=== PATIENT | male | born 1950 | race Caucasian/White ===

== ENCOUNTER 2020-07-28 15:51 | Emergency (ER) | payer MEDICARE ==
[~2020-07-28] VITALS: Ht 170.2 cm; Wt 63.6 kg
[2020-07-28] MEDS ORDERED: MORPHINE ER 30 MG TABLET.ER PO STA (17:29)
[2020-07-28] MEDS ORDERED: OXYC1TAB15 PO (17:40)
--- NOTE | 2020-07-28 17:41 | PHYS DOC ---
Past Medical History Past Medical History: GI Bleed, Hypertension, Other Additional Past Medical Histor: CHRONIC BACK/R SHOULDER PAIN Past Surgical History: Other Additional Past Surgical Histo: R SHOULDER X5,RECONSTRUCTION FACIAL SURG Smoking Status: Former Smoker Alcohol Use: None General Adult EDM: Chief Complaint: PAIN CONTROL HPI: HPI: Patient is a 69 year old male with a history of chronic low back pain and chronic right shoulder presenting to the ED today requesting a refill for morphine extended release 60 mg which he takes every day for chronic pain. He states his doctor has been trying to taper him off this medication into a lower dose. He states he ran out of the prescription a week ago and has 1 more week before he can be seen by the primary care doctor for refills. Patient denies any injury. Denies any loss of bowel/bladder function. Review of Systems: Review of Systems: Constitutional: Denies fever or chills. [] GI: Denies abdominal pain, nausea, vomiting, bloody stools or diarrhea. [] Musculoskeletal: Reports chronic low back pain and chronic right shoulder pain Integument: Denies rash. [] Neurologic: Denies headache, focal weakness or sensory changes. [] Psychiatric: Denies depression or anxiety. [] Heart Score: Risk Factors: Risk Factors: DM, Current or recent (<one month) smoker, HTN, HLP, family history of CAD, obesity. Risk Scores: Score 0 - 3: 2.5% MACE over next 6 weeks - Discharge Home Score 4 - 6: 20.3% MACE over next 6 weeks - Admit for Clinical Observation Score 7 - 10: 72.7% MACE over next 6 weeks - Early Invasive Strategies Allergies: Allergies: Allergies Coded Allergies Type Severity Reaction Last Updated Verified No Known Drug Allergies 07/28/20 No Physical Exam: PE: Constitutional: Well developed, well nourished, no acute distress, non-toxic appearance. [] Abdomen: Bowel sounds normal, soft, no tenderness, no masses, no pulsatile masses. [] Skin: Warm, dry, no erythema, no rash. [] Back: No tenderness, no CVA tenderness. 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 No tenderness, no cyanosis, no clubbing, ROM intact, no edema. [] Neurologic: Alert and oriented X 3, normal motor function, normal sensory function, no focal deficits noted. [] Psychologic: Affect normal, judgement normal, mood normal. [] Current Patient Data: Vital Signs: Vital Signs Date Time Temp Pulse Resp B/P (MAP) Pulse Ox O2 Delivery O2 Flow Rate FiO2 07/28/20 16:40 98.9 83 17 136/99 (111) 96 Room Air 98.9 EKG: EKG: [] Radiology/Procedures: Radiology/Procedures: [] Course & Med Decision Making: Course & Med Decision Making Pertinent Labs and Imaging studies reviewed. (See chart for details) This is a 69-year-old male patient presenting to the ED today with chronic right shoulder pain and chronic low back pain, ran out of morphine 60 mg daily. Informed patient i will write him prescription for oxycodone I would not write him a prescription for morphine 60 mg, it is a very high dose. F/u with his PCP next week Margaux Disclaimer: Margaux Disclaimer: This electronic medical record was generated, in whole or in part, using a voice recognition dictation system. Departure Departure Impression: Primary Impression: Medication refill Additional Impressions: Chronic low back pain Qualified Codes: M54.5 - Low back pain; G89.29 - Other chronic pain Chronic right shoulder pain Disposition: 01 DC HOME SELF CARE/HOMELESS Condition: STABLE Referrals: NON,STAFF (PCP) Follow-up with your doctor next week Patient Instructions: Back Pain, Adult, Medication Refill, Emergency Department Additional Instructions: You were evaluated in the emergency room, please follow-up with your doctor next week for your pain medicine. Scripts Oxycodone/Apap 5-325 (PERCOCET 5-325 MG TABLET ) 1 Each Tablet 1 TAB PO PRN TID PRN for SEVERE PAIN 7-10 MDD 3 Tablet(s) for 7 Days, #21 TAB 0 Refills Prov: SIVA HERNANDEZ TING 07/28/20 SIVA HERNANDEZ RELAY TECHNICIAN Jul 28, 2020 17:41
[2020-07-28 18:09] VITALS: BP 190/100
== END 2020-07-28 18:09 | disposition home or self-care (01) ==
LOC: ER 15:51
DX: G89.29 Other chronic pain (principal); M54.5 Low back pain; M25.511 Pain in right shoulder; I10 Essential (primary) hypertension; Z87.891 Personal history of nicotine dependence
CPT/HCPCS: 99284